=== PATIENT | male | born 1955 | race Caucasian/White ===

== ENCOUNTER 2020-10-04 10:18 | Outpatient (CLI) | payer MEDICARE, BC, SELFPAY ==
--- NOTE | 2020-10-04 06:00 | DI.RAD_ITS ---
EXAM: XR PAIN CLINIC SACRIOILIAC 2V CLINICAL HISTORY: Dx: Sacroiliac Joint dysfunction TECHNIQUE: 2D and realtime digital imaging was performed. CONTRAST MATERIAL: Refer to procedure report. COMPARISON: No exams were available for comparison FINDINGS: Fluoroscopy was provided for Dr. Larios during the performance of a left sacroiliac joint injection. Please refer to the procedure report for complete details. Fluoro time: 17.2 seconds IMPRESSION:
[2020-10-04 10:38] VITALS: BP 119/72; PULSE 70; RESP 17; TEMP 37; O2SAT 97
--- NOTE | 2020-10-04 11:40 | PDOC.PAIN ---
Pain Clinic Procedure Note Procedure Note Procedure Note: Date of service: 10/04/20 INTRA-ARTICULAR SI JOINT INJECTION DODIE ULLOA has been referred to the [facility] for intra-articular SI joint injection. COMMENTS: He was previously seen on 09/17/20 in our clinic by Ms. Dietz. DX: Sacroiliac joint injection Patient was interviewed and the medical record reviewed. There were no medical, pharmacologic, radiographic or other structural contraindications to attempting fluoroscopically guided intra-articular SI joint injection. Risks and expected side effects as well as potential benefit of the procedure were reviewed and voiced concerns addressed. The printed consent form was signed and witnessed. Standard time-out procedure was performed. Patient was placed in the prone position on the fluoroscopy table and automated blood pressure cuff and pulse oximeter applied. The skin entry point for approaching left SI joint was identified under the most advantageous fluoroscopic view and marked. Following thorough Chlorhexadine preparation of the skin and draping and 1% lidocaine infiltration of the skin entry point and subcutaneous tissues, a 22 gauge spinal needle was placed under fluoroscopic guidance into left SI joint was identified under the most advantageous fluoroscopic view and marked. Intra-articular placement was confirmed by a clear arthrogram resulting from the injection of 0.25ml Omnipaque 240, 1ml 1% lidocaine, and 80mg Depomedrol were injected intra-articularily with an initial reproduction of a significant component of the usual pain. Vital signs were stable throughout the procedure and were as recorded in the docflowsheet by the nursing staff. If given, dosages of intravenous drugs for anxiolysis and analgesia were documented in MAR. Follow up plans and appointments were discussed with the patient. Post procedure instruction was given as documented in nursing documentation and having met discharge criteria, and was discharged from the [facility]. COMMENTS: He was instructed on his medications. If this procedure is found to be helpful, it can be completed up to 3 times per 12 months. Bryn Larios DO, MPH Pain Management [facility]:
[2020-10-04 11:54] VITALS: BP 133/70; PULSE 65; RESP 18; O2SAT 97
[2020-10-04] MEDS: Omnipaque 240 MG/ML 50 ML BTL (11:54)
[2020-10-04] MEDS: methylPREDNISolone ACETATE 80 MG/ML VIAL IJ (11:54)
== END 2020-10-04 10:38 ==
PROVIDERS: Visit Provider Preventive Medicine Occupational Medicine
DX: M53.3 Sacrococcygeal disorders, not elsewhere classified (principal)
CPT/HCPCS: 27096; 72200; J1040; Q9967

== ENCOUNTER 2020-10-24 15:02 | Outpatient (CLI) | payer MEDICARE, BC, SELFPAY ==
--- NOTE | 2020-10-24 14:30 | DI.RAD_ITS ---
EXAM: XR SHOULDER RT COMPLETE 2+V CLINICAL HISTORY: right shoulder pain. TECHNIQUE: 2D digital imaging was performed. COMPARISON: No exams were available for comparison FINDINGS: BONES: No acute fracture is present. No bony destructive lesion is seen. JOINTS: No dislocation present. There is spurring at the AC joint. There is minimal spurring at th e margin of the glenoid. The glenohumeral joint space is well maintained. SOFT TISSUE: There is a small calcification is seen adjacent to the lesser tuberosity. This is could be related to the biceps tendon. IMPRESSION: Mild degenerative changes of the AC joint. Calcific tendinosis of the biceps. DATA REPOSITORY: RADIATION DOSE DELIVERED:
--- OUTSIDE RECORDS SUMMARY | 2020-10-24 15:04 | XMS_ITS | Encounter Summary ---
:1955 Author Care Team Providers Name Role Phone RUFINO Webber Primary Care Provider Unavailable Aaron John MD General Surgeon [phone] Reason for Visit None recorded. Assessment and Plan 1. Administration of pneumococca l vaccine ? Prevnar 13 (PF) 0.5 mL int ramuscular syringe Discussion Note: None recorded.Patient educational handouts: No information available. Plan of Care Reminders Provider Appointments Nurse 20 10/29/2020 Nurse Pcn 9:00AM ? Cpe 40 07/01/2021 Cassi 7:40AM RUFINO Pimentel Lab None ? ? recorded. Referral None ? ? recorded. Procedures None ? ? recorded. Surgeries None ? ? recorded. Imaging None ? ? recorded. Medications Name Start Date ? ? aspirin 81 mg tablet ? Take 1 tablet every day by oral route. biotin 2,500 mcg capsule ? Take 2500 micrograms every day by oral route. bupropion HCl XL 300 mg 24 hr tablet, extended release ? Take 1 tablet every day by oral route for 90 days. Calcium 600 ? daily Fish Oil 1,000 mg (120 mg-180 mg) capsule ? Take 1 capsule every day by oral route. fluoxetine 20 mg capsule ? TAKE 1 CAPSULE DAILY meloxicam 15 mg tablet ? Take 1 tablet every day by oral route. trazodone 50 mg tablet ? Take 1 tablet every day by oral route at bedtime for 90 days. valacyclovir 1 gram tablet ? take 2 tablets at onset of symptoms and repeat 12 marichuy rs later for 1 day Vitamin B12 ? 50 mg daily Vitamin C 1,000 mg tablet ? Take 1 tablet every day by oral route. zinc 50 mg tablet ? Take 50 mg every day by oral route. Medications Administered None recorded. Vitals Height 5 ft 8 in Results Lab Results None recorded. Allergies Code Code System Name Reaction Severity Onset NKDA ? ? ? Problems Name Status Onset Date Source ? Herpesviral Vesicular Dermatitis Active ? History Benign Neoplasm of Skin Active ? History Hyperlipidemia Active ? History Depressive Disorder Active ? History Atopic Dermatitis Active ? History Actinic Keratosis Active ? History Senile Hyperkeratosis Active ? History Procedures Date Name Performed by ? 11/13/2015 Colonoscopy Information not avai lable 12/16/2010 Hernia Repair Information not avai lable ? Septoplasty Information not avai lable Notes: arm surgery Vaccine List Vaccine Type Hep B, adolescent or pediatric 12/13/1993 influenza, injectable, quadrivalent 05/04/2019 influenza, injectable, quadrivalent, pre servative free 06/27/2020?0.5 mL influenza, recombinant, quadrIvalent,inj ectable, preservative free 05/07/2018 influenza, seasonal, injectable 07/09/2005 06/14/2007 06/03/2012?0.5 mL influenza, seasonal, injectable, preserv ative free 07/01/2006 07/24/2009 06/17/2010?0.5 mL 05/28/2011?0.5 mL pneumococcal conjugate PCV 13 08/28/2020?0.5 mL Td (adult), adsorbed 12/14/1995 09/22/2005 Tdap 11/18/2011?0.5 mL 04/24/2018?0.5 mL zoster live 12/07/2012?0.65 mL zoster recombinant 04/23/2018 03/16/2019 Social History Tobacco Smoking Status Former Smoker Notes: quit in 1974 Are you currently employed? Y Blind or serious difficulty N seeing Most Recent Tobacco Use Screening 03/15/2019 Exercise level Moderate Notes: hike, ski, bike, and hike Tobacco-years of use 4 Hand Dominance Right Alcohol intake Occasional Notes: 1 glass of wine/day Animal exposure? N Language Difficulties No Smoking - patient's current pack 10packyears years? 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 aids Caffeine intake Moderate Notes: 1 cup of t ea/day Drug Use N Guns present in home N Occupation Teacher - retired Family History Relation Problem Onset Age of Age Notes Father Cerebrovascular accident (No 70 (No Notes) Information) Mother Diabetes mellitus (No N/A (No Notes) Information) Brother Malignant tumor of (No N/A (No Notes ) prostate Information) Functional Status No Impairment. Past Encounters 08/28/2020 Administration of Pneumococcal Vaccine RUFINO Webber: [address] [place] [id number], Ph. History of Present Illness None recorded. Review of Systems None recorded. Physical Exam None recorded.
--- OUTSIDE RECORDS SUMMARY | 2020-10-24 15:04 | XMS_ITS | Encounter Summary ---
:1955 Author Care Team Providers Name Role Phone RUFINO Webber Primary Care Provider Unavailable Aaron John MD General Surgeon [phone] Reason for Visit None recorded. Assessment and Plan 1. Pain of right shoulder joint RHD male with persistent right shoulder pain x 2 months. DDx: RTC tendonitis vs. bursitis vs. biceps tendo nitis. Impingement signs are negative. After discussion of treatment options - PT vs. referral to orthopedics, patient is requesting referral to orthopedics for c onsideration of joint injection vs. further imaging. Will provide with RTC exercises and I encouraged use of topical analgesics. ? orthopedic referral ? rotator cuff: exercises Discussion Note: None recorded. Plan of Care Reminders Provider Appointments Nurse 20 Nurse Pcn 10/29/2020 9:00AM ? Cpe 40 Cassi 07/01/2021 RUFINO Pimentel 7:40AM Lab None recorded. ? ? Referral Orthopedic Prabha Adams Referral 09/26/2020 Procedures None recorded. ? ? Surgeries None recorded. ? ? Imaging None recorded. ? ? Medications Name Start Date ? ? aspirin [...] route. Medications Administered None recorded. Vitals Height Weight BMI Blood Pressure 5 ft 8 in 155 lbs 1.6 oz 23.6 kg/m2 120/82 mm[Hg] Results Lab Results None recorded. Allergies Code [...] Information) Functional Status No Impairment. Past Encounters 09/26/2020 Pain of Right Shoulder Joint Cassi Pimentel PA: [address] [place] [id number], Ph. 08/28/2020 Administration of Pneumococcal Vaccine Cassi Pimentel PA: [address] [place] [phone], Ph. History of Present Illness ? Shoulder Reported By: Patient HPI: Location: right. Quality: ac noemi. Severity: moderate. Timing: acute. Context: ; shoveling. Allevi ating Factors: ; ortho massage therapist. Aggravating Factors: lifting ; writing. Associated Symptoms: weakness. Previous Surgery: none. Prio r Imaging: none. Previous Injections: none Notes: <p>R shoulder injury around Thanksgiving, shoveling mulch for [employer]. </p><p>I thought I pulled something but continued to shovel</p><p>He had seen a massage therapist without improvement. </p><p>Anterior shoulder darius n, Lateral shoulder pain with radiation into biceps and forearm. </p><p>F eels that his right hand is weaker than previously. </p><p>Lifting a rm is painful.
</p><p>Overhead activities and behind the back. </p><p> No n/t.
</p><p>Writing seems to exacerbate the discomfort. < /p><p>Meloxicam 15 mg qd for back, has not helped with shoulder.</p><p> MAPAP has not been helpful. </p> Review of Systems ? Comprehensive General Adult ROS Reported By: Patient Constitutional: Constitutional: no fever, no night sweats, no significant weight gain, no significant weight loss, no exercise intolerance, no chills, no malaise Cardiovascular: Cardiovascular: no chest darius n, no arm pain on exertion, no shortness of breath when walking, no s hortness of breath when lying down, no palpitations, no known heart murmur, no ankle swelling Respiratory: Respiratory: no cough, no wh eezing, no shortness of breath, no coughing up blood, no sleep apnea Musculoskeletal: Musculoskeletal: no back darius n, no swelling in the extremities, no neck pain, no difficulty wal wang, no cramps, no osteoporosis, no fractures, muscle aches, mus daniel weakness, arthralgias/joint pain Neurologic: Neurologic: no numbness, wea kness Physical Exam ? Musculoskeletal and Joint Ex am, Neurology Exam Reported By: Patient Musculoskeletal System: Musculoskeletal System gildardo l range of motion in all peripheral joints. Right Inga ulder: tenderness, bursitis/tendonitis; Patient has pain with AROM above head and behind back. He has weak ness and pain with resisted shoulder abduction and empty can testing. He has mild pain with speed's testing. No wea kness with ER or IR. 2+ radial pulse. Sensation to light to uch intact. Left Shoulder: good ROM, no objective synovitis, no tenderness, no erythema, no warmth. Right Elbow: good RO M, no objective synovitis, no tenderness, no warmth, no er ythema. Left Elbow: good ROM, no objective synovitis, no tend erness, no warmth, no erythema. Right Upper Extremity: gildardo l bulk, normal tone. Left Upper Extremity: normal bulk, norm al tone. Right Shoulder Strength: internal rotation 5/5, exter nal rotation 5/5, abduction 4/5. Left Shoulder Strength: abdu ction 5/5, internal rotation 5/5, external rotation 5/5. Right Elbow Strength: flexion 5/5, extension 5/5. Left Elbow St rength: flexion 5/5, extension 5/5. Right Hand: hand buttonhole tacker 5 /5. Left Hand: hand buttonhole tacker 5/5 Constitutional: Weight: well-nourished. Ambu lation: ambulates independently Skin: Inspection: ; patient has ec chymosis of anterior shoulder from cupping done by massage therapist
--- OUTSIDE RECORDS SUMMARY | 2020-10-24 15:04 | XMS_ITS ---
:1955 Author Care Team Providers Name Role Phone RUFINO ARTEAGA Primary Care Provider Unavailable CHRIS JOHN MD General Surgeon [phone] Allergies Code Code System Name Reaction Severity Status Onset NKDA ? Medications Name Status Start Date Stop Date ? ? Afluria Quad [id number] (PF) 60 Completed ? 0 04/14/2019 mcg (15 mcg x 4)/0.5 mL IM syringe amoxicillin 500 mg capsule Completed 01/27/200802/05 1 (one) Cap: three times a day aspirin 81 mg tablet Active ? Not availab le Take 1 tablet every day by oral route. Bactroban 2 % topical cream Completed 09/19/200902/2010 biotin 2,500 mcg capsule Active ? Not samantha ilable Take 2500 micrograms every day by oral route. bupropion HCl XL 300 mg 24 hr tablet, extended release Active ? Not available Take 1 tablet every day by oral route for 90 days. Calcium 600 Active ? Not available daily desoximetasone 0.25 % topical cream Completed 04/19/2015 03/21/2016 1 (one) FTU: two times daily Elocon 0.1 % topical cream Completed 11/18/201111/17 1 Cream: daily Fish Oil 1,000 mg (120 mg-180 mg) capsule Active ? Not available Take 1 capsule every day by oral route. Fluarix Quad (PF) 60 Completed ? 1 mcg (15 mcg x 4)/0.5 mL IM syringe fluocinonide 0.05 % topical cream Completed 09/19/2009 09/19/2009 1 Cream: three times daily fluoxetine 20 mg capsule Active ? Not samantha ilable TAKE 1 CAPSULE DAILY meloxicam 15 mg tablet Active ? Not avail able Take 1 tablet every day by oral route. Multi-Day tablet Completed 11/08/2010 04/05/2014 1 (one) Tablet: qd - daily penicillin V potassium 250 mg Completed 12/09/2004 tablet prednisone 10 mg tablet Completed 11/18/2011 11/18/19 12 1 Tablet: As directed Shingrix (PF) 50 mcg/0.5 mL Completed ? 09/2018 intramuscular suspension, kit trazodone 50 mg tablet Active ? Not avail able Take 1 tablet every day by oral route at bedtime for 90 days. valacyclovir 1 gram tablet Active ? Not a vailable take 2 tablets at onset of symptoms and repeat 12 hours later f or 1 day valacyclovir 500 mg tablet Completed ? 06/27 Vitamin B12 Active ? Not available 50 mg daily Vitamin C 1,000 mg tablet Active ? Not av ailable Take 1 tablet every day by oral route. zinc 50 mg tablet Active ? Not available Take 50 mg every day by oral route. Problems Name Status Onset Date Source ? Herpesviral Vesicular Dermatitis Active ? History Benign Neoplasm of Skin Active ? History Hyperlipidemia Active ? History Depressive Disorder Active ? History Visual Disturbance Unknown ? History Bilateral Deafness Unknown ? History Deviated Nasal Septum Unknown ? History Allergic Rhinitis Unknown ? History Atopic Dermatitis Active ? History Contact Dermatitis Unknown ? History Actinic Keratosis Active ? History Senile Hyperkeratosis Active ? History Eruption Unknown ? History Adult Health Examination Unknown ? History Procedure by Method Unknown ? History Procedures Date Name Performed by ? 11/13/2015 Colonoscopy Information not avai lable 12/16/2010 Hernia Repair Information not avai lable ? Septoplasty Information not avai lable 03/15/2019 XR, Lumbosacral Spine, 2 or 3 View [facility] Rad[facility] (Internal) [address] [place] [address] (Work Place) 06/27/2020 MRI, Lumbar Spine, W/o Contrast [facility] Radiology (Internal) [address] [place] [address] (Work Place) Notes: arm surgery Results Lab Results Date Name Specimen Result Interpretation Description Value Range Status Address ? 07/13/2020 HbA1C BLD ? Ha1C 5.2 % 4.0-6.0 % Final [place] (Hemoglobin Count ry a1C), [facility] (Internal[facility] : [address] 06/27/2020 CMP, Serum or S High g/r 111 mg/dL 74-106 Fin al [place] Plasma mg/dL [facility] : [address] ? ? S ? Bun 15 mg/dL 9-20 Final [place] mg/dL [facility] ([facility]) : [address] ? ? S ? Crea 0.80 mg/dL 0.66-1.25 Final [place] [facility] mg/dL [facility] ([facility] : [address] ? ? S ? Ca 9.9 mg/dL 8.4-10.2 Final [place] mg/dL [facility] ([facility]) : [address] ? ? S ? Na 139 mmol/L 137-145 Final [place] mmol/L [facility] ([facility]) : [address] ? ? S ? K 4.2 mmol/L 3.5-5.1 Final [place] mmol/L [facility] ([facility]) : [address] ? ? S ? Cl 104 mmol/L 98-107 Final [place] mmol/L [facility] ([facility]) : [address] ? ? S ? Tco2 30.0 22.0-30.0 Final [place] mmol/L mmol/L [facility] ([facility]) : [address] ? ? S ? Tp 7.2 g/dL 6.3-8.2 Final [place] g/dL [facility] ([facility] : [address] ? ? S ? Alb 4.3 g/dL 3.5-5.0 Final [place] g/dL [facility] ([facility] : [address] ? ? S ? Tbil 0.6 mg/dL 0.2-1.3 Final [place] mg/dL [facility] ([facility] : [address] ? ? S ? Alp 67 U/L 38-126 Final [place] U/L [facility] ([facility]) : [address] ? ? S Low Alt 19 U/L 21-72 U/L Final [place] (Sgpt) [facility] ([facility] : [address] ? ? S ? Ast 28 U/L 17-59 U/L Final [place] (Sgot) [facility] ([facility] : [address], [place] 06/27/2020 Lipid Panel, S ? Chol 195 mg/dL 50-200 Maggie l North Serum mg/dL [facility] (Internal) : [address] ? ? S ? Trig 103 mg/dL 10-150 Final [place] mg/dL [facility] (Internal) : [address] ? ? S High Hdl 81 mg/dL 40-60 Final [place] mg/dL [facility] (Internal) : [address] ? ? S ? Ldl 93 mg/dL 0-130 Final [place] mg/dL [facility] (Internal) : [address] 06/27/2020 PSA, Serum or S ? PSA 1.5 NG/mL 0.0-4.0 Fi nal [place] Plasma Scrn NG/mL [facility] (Internal) : [address] 06/27/2020 Vitamin B12, S ? Vit B12 696.0 239.0-931 Fi nal [place] Serum pg/mL .0 pg/mL [facility] (Internal) : [address] 03/22/2019 CBC W/ Auto BLD - Wbc 5.2 5.0-10.0 Final [place] Diff 10*3/uL 10*3/uL [facility] (Internal) : [address] ? ? BLD Low Rbc 4.37 4.60-6.00 Final [place] 10*6/uL 10*6/uL [facility] (Internal) : [address] ? ? BLD - Hgb 14.3 g/dL 14.0-18.0 Final Nort h g/dL [facility] (Internal) : [address] ? ? BLD - Hct 42.4 % 41.0-51.0 Final [place] % [facility] (Internal) : [address] ? ? BLD High Mcv 97.0 fL 80.0-96.0 Final [place] fL [facility] (Internal) : [address] ? ? BLD High Mch 32.7 pg 26.0-32.0 Final [place] pg [facility] (Internal) : [address] ? ? BLD - Mchc 33.7 g/dL 31.0-35.0 Final Nort h g/dL [facility] (Internal) : [address] ? ? BLD - Rdw 12.4 % 11.5-14.5 Final [place] % [facility] (Internal) : [address] ? ? BLD - Plt 269 130-450 Final [place] 10*3/uL 10*3/uL [facility] (Internal) : [address] ? ? BLD - Anc 3.33 ? Final [place] 10*3/uL [facility] (Internal) : [address] ? ? BLD - Neutro 64.7 % 40.0-75.0 Final [facility] ([facility] : [address] ? ? BLD - Lymph 22.9 % 20.0-50.0 Final [facility] ([facility] : [address] ? ? BLD - [place] 8.7 % 2.0-10.0 Final [place] % [facility] (Internal) : [address] ? ? BLD - Eos 2.3 % 1.0-6.0 % Final [facility] (Internal) : [address] ? ? BLD High Baso 1.2 % 0.0-1.0 % Final [facility] (Internal) : [address] ? ? BLD - Ig 0.2 % 0.0-0.9 % Final [facility] (Internal) : [address] 03/22/2019 CMP, Serum or S - g/r 103 mg/dL 74-106 Fin al [place] Plasma mg/dL [facility] : [address] ? ? S - Bun 11 mg/dL 9-20 Final [place] mg/dL [facility] (Internal) : [address] ? ? S - Crea 0.90 mg/dL 0.66-1.25 Final [place] mg/dL [facility] ([facility] : [address] ? ? S - Ca 9.0 mg/dL 8.4-10.2 Final [place] mg/dL [facility] ([facility] : [address] ? ? S - Na 137 mmol/L 137-145 Final [place] mmol/L [facility] ([facility] : [address] ? ? S - K 4.5 mmol/L 3.5-5.1 Final [place] mmol/L [facility] ([facility] : [address] ? ? S - Cl 103 mmol/L 98-107 Final [place] mmol/L [facility] ([facility]) : [address] ? ? S - Tco2 29.0 22.0-30.0 Final [place] mmol/L mmol/L [facility] ([facility]) : [address] ? ? S - Tp 6.9 g/dL 6.3-8.2 Final [place] g/dL [facility] ([facility] : [address] ? ? S - Alb 4.0 g/dL 3.5-5.0 Final [place] g/dL [facility] ([facility] : [address] ? ? S - Tbil 0.3 mg/dL 0.2-1.3 Final [place] mg/dL [facility] ([facility] : [address] ? ? S - Alp 67 U/L 38-126 Final [place] U/L [facility] ([facility] : [address] ? ? S - Alt 33 U/L 21-72 U/L Final [place] (Sgpt) [facility] ([facility] : [address] ? ? S - Ast 36 U/L 17-59 U/L Final [place] (Sgot) [facility] ([facility] : [address] 03/22/2019 Lipid Panel, S - Chol 171 mg/dL 50-200 Maggie l [place] Serum mg/dL [facility] ([facility]) : [address] ? ? S - Trig 77 mg/dL 10-150 Final [place] mg/dL [facility] ([facility]) : [address] ? ? S - Hdl 57 mg/dL 40-60 Final [place] mg/dL [facility] ([facility]) : [address] ? ? S - Ldl 99 mg/dL 0-130 Final [place] mg/dL [facility] ([facility]) : [address] 03/22/2019 Folate, Serum S - Folate 12.10 2.76-20.0 Fi nal [place] NG/mL 0 NG/mL [facility] : [address] [facility] 03/22/2019 PSA, Serum or S - PSA 1.6 NG/mL 0.0-4.0 Fi nal [place] Plasma Scrn NG/mL [facility] ([facility]) : [address] [facility] 03/22/2019 TSH, Serum or S - Tsh 1.20 0.47-4.68 Fin al [place] Plasma u[IU]/mL u[IU]/mL [facility] [address] [facility] 03/22/2019 Vitamin B12, S - Vit B12 335.0 239.0-931 Fi nal [place] Serum pg/mL .0 pg/mL [facility] ([facility] : [address] 03/22/2019 Vitamin D, S - 25-Hydr <4.0 NG/mL ? Fin [facility] 25-Hydroxy, oxy D2 Count ry Total, Serum Hosp ital Lab (Internal) : [address] ? ? S - 25-Hydr 52 NG/mL ? Final [place] oxy D3 [facility] ([facility]) : [address] ? ? S - 25-Hydr 52 NG/mL ? Final [place] oxy D [facility] : [address] 04/20/2018 PSA, Serum or S - PSA 1.5 NG/mL 0.0-4.0 Fi nal [place] Plasma Scrn NG/mL [facility] ([facility] : [address] 04/20/2018 Hepatitis C S - Hep C negative negat Final [place] Virus Ab, Ab W Rfx Count ry Serum [facility] (Internal) : [address] 04/17/2017 Venipuncture BLD ? Venpn* ? ? Final [facility] (Internal) : [address] 04/17/2017 Lipid Panel, S High Chol 233 mg/dL 50-200 Maggie l [place] Serum mg/dL [facility] ([facility] : [address] ? ? S ? Trig 98 mg/dL 10-150 Final [place] mg/dL [facility] ([facility]) : [address] ? ? S High Hdl 72 mg/dL 40-60 Final [place] mg/dL [facility] ([facility] : [address] ? ? S High Ldl 141 mg/dL 0-130 Final [place] mg/dL [facility] ([facility] : [address] 04/17/2017 PSA, Serum or S ? PSA 2.1 NG/mL 0.0-4.0 Fi nal [place] Plasma Scrn NG/mL [facility] ([facility] : [address] 04/17/2017 BMP, Serum or S ? g/r 102 mg/dL 74-106 Fin al [place] Plasma mg/dL [facility] ([facility] : [address] ? ? S ? Bun 12 mg/dL 9-20 Final [place] mg/dL [facility] (Internal) : [address] ? ? S ? Crea 0.90 mg/dL 0.66-1.25 Final [place] th mg/dL [facility] ([facility] : [address] ? ? S ? Ca 9.3 mg/dL 8.4-10.2 Final [place] mg/dL [facility] ([facility] : [address] ? ? S ? Na 139 mmol/L 137-145 Final [place] mmol/L [facility] (Internal) : [address] ? ? S ? K 4.4 mmol/L 3.5-5.1 Final [place] mmol/L [facility] (Internal) : [address] ? ? S ? Cl 104 mmol/L 98-107 Final [place] mmol/L [facility] (Internal) : [address] ? ? S ? Tco2 27.0 22.0-30.0 Final [place] mmol/L mmol/L [facility] (Internal) : [address], [address] t Past Encounters 09/26/2020 Pain of Right Shoulder Joint Cassi Pimentel PA: [address] [place] [address], Ph. 08/28/2020 Administration of Pneumococcal Vaccine Cassi Pimentel PA: [address] [place] [address], Ph. 07/23/2020 Chris John MD: [address] [place] [address], Ph. 07/13/2020 Skin Lesion Chris John MD: [address] [place] [address], Ph. 06/27/2020 Adult Health Examination; Screening for Malignant Neoplasm of Prostate; Administration of Influenza Vaccine; Hyperlipidemia; Depressive Disorder; Insomnia; Herpesviral Vesicular Dermatitis; Chronic Low Back Pain; Inflamed Seborrheic Keratosis Cassi Pimentel PA: [address] [place] [address], Ph. 05/04/2019 Low Back Pain; Muscle Weakness; Poor Pos beti Zayas, PT: [address], [facility] [address] [address], Ph. 04/26/2019 Low Back Pain; Muscle Weakness; Poor Pos beti Zayas, PT: [address], [place] [address], Ph. Social History Tobacco Smoking Status Former Smoker Notes: quit in 1974 Vaccine List Vaccine Type Hep B, adolescent [...] live 12/07/2012?0.65 mL zoster recombinant 04/23/2018 03/16/2019 Plan of Care Reminders Provider Appointments None ? ? recorded. Lab None ? ? recorded. Referral None ? ? recorded. Procedures None ? ? recorded. Surgeries None ? ? recorded. Imaging None ? ? recorded. Vitals 09/26/2020 08:40AM Follow Up 20 Height Weight BMI Blood Pressure 172.72 cm 70.35 kg 23.6 kg/m2 120/82 mm[Hg] 08/28/2020 09:00AM Nurse 20 Height 172.72 cm 07/13/2020 09:00AM Office 15 Height Weight BMI Blood Pressure 172.72 cm 66.22 kg 22.2 kg/m2 06/27/2020 09:20AM CPE 40 Height Weight BMI Blood Pressure 172.72 cm 66.34 kg 22.2 kg/m2 136/86 mm[Hg] 04/14/2019 01:20PM Follow Up 20 Height Weight BMI Blood Pressure 172.72 cm 69.9 kg 23.4 kg/m2 140/78 mm[Hg] 03/15/2019 08:40AM CPE 40 Height Weight BMI Blood Pressure 172.72 cm 69.9 kg 23.4 kg/m2 132/80 mm[Hg] 05/03/2018 10:00AM Acute 20 Height Blood Pressure 172.72 cm 136/80 mm[Hg] 04/29/2018 11:40AM Any 20 Height Blood Pressure 172.72 cm 140/78 mm[Hg] 04/23/2018 10:00AM Follow Up 20 Height Blood Pressure 172.72 cm 130/80 mm[Hg] 04/20/2018 08:00AM Office SUNITHA 60 Height Weight BMI Blood Pressure 172.72 cm 70.03 kg 23.5 kg/m2 120/80 mm[Hg] 04/15/2017 Height Weight Blood Pressure 172.72 cm 70.53 kg 124/80 mm[Hg] 03/21/2016 Weight Blood Pressure 72.48 kg 130/86 mm[Hg] 04/19/2015 Height Weight Blood Pressure 174.63 cm 71.44 kg 124/62 mm[Hg] 04/05/2014 Height Weight Blood Pressure 172.09 cm 72.26 kg 126/84 mm[Hg] 12/07/2012 Height Weight Blood Pressure 172.72 cm 71.89 kg 136/82 mm[Hg] 11/18/2011 Height Weight Blood Pressure 172.72 cm 75.25 kg 132/82 mm[Hg] 06/24/2011 Weight Blood Pressure 78.24 kg 122/74 mm[Hg] 05/28/2011 Weight Blood Pressure 78.24 kg 140/84 mm[Hg] 11/08/2010 Height Weight Blood Pressure 172.72 cm 73.48 kg 124/82 mm[Hg] 08/15/2010 Weight Blood Pressure 77.43 kg 136/80 mm[Hg] 04/10/2010 Blood Pressure 120/64 mm[Hg] 09/19/2009 Weight Blood Pressure 78.02 kg 148/88 mm[Hg] 04/20/2009 Blood Pressure 144/76 mm[Hg] 09/12/2008 Height Weight Blood Pressure 172.72 cm 76.2 kg 122/80 mm[Hg] 01/27/2008 Weight Blood Pressure 74.84 kg 138/86 mm[Hg] 07/21/2007 Height Weight Blood Pressure 172.72 cm 77.11 kg 128/68 mm[Hg] 2006 Weight Blood Pressure 72.57 kg 148/84 mm[Hg] 03/20/2006 Weight Blood Pressure 73.48 kg 128/80 mm[Hg] 09/22/2005 Height Weight Blood Pressure 172.72 cm 79.38 kg 134/82 mm[Hg] 07/16/2005 Weight Blood Pressure 77.11 kg 140/82 mm[Hg] 07/09/2005 Weight Blood Pressure 76.2 kg 136/80 mm[Hg] 06/13/2005 Weight Blood Pressure 76.2 kg 144/90 mm[Hg] 04/14/2005 Weight Blood Pressure 74.84 kg 116/70 mm[Hg] 12/09/2004 Weight Blood Pressure 74.39 kg 132/88 mm[Hg] 09/18/2004 Height Weight Blood Pressure 172.72 cm 77.11 kg 124/80 mm[Hg]
== END 2020-10-24 15:03 | disposition home or self-care (01) ==
LOC: DIORS 15:03
PROVIDERS: PCP Internal Medicine; Referring Provider Internal Medicine; Visit Provider Student in an Organized Health Care Education/Training Program
DX: M19.011 Primary osteoarthritis, right shoulder (principal); M65.221 Calcific tendinitis, right upper arm; M25.511 Pain in right shoulder
CPT/HCPCS: 20610; 99204; 99213; 73030; J1030

== ENCOUNTER 2020-12-12 15:59 | Outpatient (CLI) | payer MEDICARE, BC, SELFPAY ==
--- NOTE | 2020-12-12 14:35 | DI.RAD_ITS ---
EXAM: XR KNEE LT 3V AP,LAT,MONAE CLINICAL HISTORY: initial eval. TECHNIQUE: 2D digital imaging was performed. COMPARISON: No exams were available for comparison FINDINGS: There is no evidence fracture or prominent joint effusion. Minimal vein a significant degenerative c hanges. However, there is a small calcification in the joint space which is seen posteriorly on the lateral view, either in the most posterior aspect capsule region or extra-articular. On the merchant's view there is a subtle surface irregularity on the anterior aspect of the medial fe moral condyle. This may be a small osteochondral defect. IMPRESSION: DATA REPOSITORY: RADIATION DOSE DELIVERED:
== END 2020-12-12 16:00 | disposition home or self-care (01) ==
LOC: DIORS 15:59
PROVIDERS: PCP Internal Medicine; Referring Provider Internal Medicine; Visit Provider Student in an Organized Health Care Education/Training Program
DX: M25.511 Pain in right shoulder (principal); M25.562 Pain in left knee; G89.29 Other chronic pain; M75.51 Bursitis of right shoulder
CPT/HCPCS: 73562; 99213; 99214

== ENCOUNTER 2020-12-31 01:24 | Outpatient (CLI) | payer MEDICARE, BC, SELFPAY ==
--- NOTE | 2020-12-31 11:40 | DI.MRI_ITS ---
EXAM: MR UPPER JOINT RT WO CLINICAL HISTORY: failure nonop,TRAUMATIC TEAR RT ROTATOR CUFF,SLAP LESION,BURSITIS, TECHNIQUE: Multiplanar multisequence MRI of the shoulder was performed. COMPARISON: CR XR SHOULDER RT COMPLETE 2+V from 10/24/2020 FINDINGS: MARROW:There is no evidence of fracture, Hill-Sachs deformity, nor ominous osseous lesions. ROTATOR CUFF MECHANISM: AC JOINT/ACROMIUM: There are significant degenerative changes in the AC joint. Some impingement at th is level. Supraspinatus: There is prominent signal abnormality in the supraspinatus tendon extending from the m usculotendinous junction to and including the foot pad insertion site. This traverses most of the th ickness but is not associated with retraction musculotendinous junction. There is a sliver of fluid in the subdeltoid bursa. Consistent with an element of high-grade partial or full-thickness tearing. There is no atrophy of the supraspinatus evident. Infraspinatus: Intact. No evidence of tear nor muscle atrophy. However, there are small degenerativ e subarticular cysts evident in the humeral head subjacent to the infraspinatus insertion site. Teres Minor: Intact. No evidence of tear nor muscle atrophy. Subscapularis/anterior cuff: There is mild tendinitis signal in the insertional fibers just anterior to the lesser tuberosity. There is a small 2 millimeter focus of subarticular signal abnormality in the medial aspect of the lesser tuberosity. BICEPS TENDON: Normally position in the intertubercular groove. No evidence of tear. No tenosynovitis. LABRUM: There is some increased signal in the superior labrum posterior to the biceps insertion site. However, this may just be sublabral recess. There is some intrasubstance signal within the posterior labrum noted which appears degenerative more so than actual tear. Anterior labrum appears intact. Th ere is no evidence of paralabral cyst. GLENOHUMERAL JOINT: No prominent joint effusion. No loose intra-articular body evident. No osteophyte s. No degenerative subarticular cysts. No evidence of capsular tear. The inferior glenohumeral ligam ent is intact. QUADRILATERAL SPACE: No evidence of mass in the region of the axillary nerve and dorsal circumflex hu meral vessels. Visualized triceps muscle at this level appears unremarkable. IMPRESSION: 1. Prominent abnormal signal in the supraspinatus tendon over the lateral 3rd of the humeral head and greater tuberosity. This signal abnormality traverses most of the thickness of the tendon at this le ivy. There is a sliver of fluid in the sub acromial-subdeltoid bursa. Findings are consistent with ei ther high-grade partial thickness tearing or full-thickness tear without retraction musculotendinous junction. Infraspinatus appears unremarkable. Some tendinitis signal is seen the level of the inserti onal fibers of the anterior cuff-subscapularis just anterior to the lesser tuberosity. Significant degenerative changes at the level of the AC joint which are causing an element of impinge ment. 2. Small degenerative subarticular cyst in the posterior lateral aspect of the humeral head subjacent to the infraspinatus insertion site. There are no tears of the infraspinatus. 3. Mild increased labral signal. No prominent labral tearing. No evidence of paralabral cyst 4. No significant osseous lesions identified. DATA REPOSITORY:
== END 2020-12-31 01:44 ==
PROVIDERS: PCP Internal Medicine; Visit Provider Student in an Organized Health Care Education/Training Program
DX: M25.511 Pain in right shoulder (principal); S46.011A Strain of muscle(s) and tendon(s) of the rotator cuff of right shoulder, initial encounter; M75.101 Unspecified rotator cuff tear or rupture of right shoulder, not specified as traumatic
CPT/HCPCS: 73221

== ENCOUNTER → 2021-03-20 10:59 | Outpatient (BNVA) | payer MEDICARE, BC, SELFPAY | PROVIDERS: PCP Internal Medicine; Referring Provider Internal Medicine; Visit Provider Student in an Organized Health Care Education/Training Program | DX: M75.51 Bursitis of right shoulder (principal); S46.011D Strain of muscle(s) and tendon(s) of the rotator cuff of right shoulder, subsequent encounter; X58.XXXD Exposure to other specified factors, subsequent encounter | CPT/HCPCS: 99213 ==

== ENCOUNTER 2021-03-26 13:39 | Outpatient (CLI) | payer MEDICARE, BC, SELFPAY ==
--- NOTE | 2021-03-26 06:00 | DI.RAD_ITS ---
Exam(s) XR PAIN CLINIC SACRIOILIAC 2V EXAM: XR PAIN CLINIC SACRIOILIAC 2V CLINICAL HISTORY: Dx: Sacroiliac Joint Dysfunction. TECHNIQUE: 2D and realtime digital imaging was performed. CONTRAST MATERIAL: COMPARISON: No exams were available for comparison FINDINGS: Prosperous roxana during pain management therapy. Submitted images reveal placement of needles in the inferior aspect of both sacroiliac joints. IMPRESSION: As above. Total fluoroscopy time 18.2 seconds. Cumulative dose 4.32mGy RADIATION DOSE DELIVERED: isaac Sanchez= mGy
[2021-03-26 13:49] VITALS: BP 159/78; PULSE 79; RESP 18; TEMP 37.2; O2SAT 100
--- NOTE | 2021-03-26 14:23 | PDOC.PAIN ---
Pain Clinic Procedure Note Procedure Note Procedure Note: INTRA-ARTICULAR SI JOINT INJECTION Date of Service: March 26, 2021 Patient: DODIE ROSE Provider: Tone Bolden MD COMMENTS: patient responded well previously to left sided SI joint injection done by Dr Larios on 09/2020 which provided significant pain relief until about a few weeks ago, he presents for bilateral SI joint injection today. Pre-operative diagnosis: sacroiliac joint dysfunction Post-operative diagnosis: same as above DODIE ROSE has been referred [facility] for intra-articular SI joint injection. Mr Rose was interviewed and the medical record reviewed. There were no medical, pharmacologic, radiographic or other structural contraindications to attempting fluoroscopically guided intra-articular SI joint injection. Risks and expected side effects as well as potential benefit of the procedure were reviewed with DODIE , and @HIS@ voiced concerns were addressed. The printed consent form was signed and witnessed. Standard time-out procedure was performed. DODIE was placed in the prone position on the fluoroscopy table and automated blood pressure cuff and pulse oximeter applied. The skin entry point for approaching the bilateral sacroiliac joint was identified under the most advantageous fluoroscopic view and marked. Following thorough Chlorhexadine preparation of the skin and draping and 1% lidocaine infiltration of the skin entry point and subcutaneous tissues, a 22 gauge spinal needle was placed under fluoroscopic guidance into the bilateral sacroiliac joint. Intra-articular placement was confirmed by a clear arthrogram resulting from the injection of 0.25ml Omnipaque 240. 1 ml 1% Lidocaine and 40mg Depomedrol (80mg/ml) was injected intra-articularily with an initial reproduction of a significant component of the usual pain. The needle was flushed with 0.5 cc of 1% Lidocaine and removed without difficulty. (49 cc of Omnipaque was wasted) DODIE s vital signs were stable throughout the procedure and were as recorded in the docflowsheet by the nursing staff. If given, dosages of intravenous drugs for anxiolysis and analgesia were documented in MAR. Follow up plans and appointments were discussed with the DODIE . Post procedure instruction was given as documented in nursing documentation and having met discharge criteria, DODIE was discharged from the [facility]. COMMENTS: No complications. Pre-procedure VAS score 7/10 Post-procedure VAS score 2/10 I personally performed this entire procedure. Tone Bolden MD ABPN-subspecialty board certification in Pain Medicine Attending Physician-Pain Management
[2021-03-26] MEDS: Lidocaine 1% Pres-Free 5 ML VIAL IJ (14:54)
[2021-03-26] MEDS: methylPREDNISolone ACETATE 80 MG/ML VIAL IJ (14:55)
[2021-03-26] MEDS: Omnipaque 240 MG/ML 50 ML BTL IJ (14:56)
[2021-03-26 14:57] VITALS: BP 168/81; PULSE 82; RESP 16; O2SAT 98
== END 2021-03-26 13:40 | disposition home or self-care (01) ==
LOC: PC 13:41
PROVIDERS: PCP Internal Medicine; Visit Provider Internal Medicine
DX: M53.3 Sacrococcygeal disorders, not elsewhere classified (principal)
CPT/HCPCS: 27096; 72200; J1040; Q9967